=== PATIENT | female | born 1955 | race Caucasian/White ===

== ENCOUNTER → 2018-07-14 | Outpatient (CLI) | payer OTHER ==
[2018-07-14 13:31] LABS: Basophils # (A) 0.1 k/uL (0-0.2); Basophils % (A) 1 %; Eosinophils # (A) 0.2 k/uL (0-0.7); Eosinophils % (A) 3 %; HCT 46.8 % (34.0-46.0); Lymphocytes # (A) 1.7 k/uL (1.0-4.8); Lymphocytes % (A) 31 %; MCH 29.7 pg (25.0-35.0); MCHC 32.1 g/dL (31.0-37.0); MCV 92.3 fL (80.0-100.0); Mean Platelet Volume 5.9; Monocytes # (A) 0.3 k/uL (0-1.0); Monocytes % (A) 6 %; Neutrophils % (A) 56 %; Platelet Count 462 k/uL (150-450); RBC 5.07 m/uL (3.80-5.40); RDW 13.4 % (11.5-15.5); WBC 5.3 k/uL (3.8-10.6)
[2018-07-14 13:49] LABS: Anion Gap 7 mmol/L; Blood Urea Nitrogen 15 mg/dL (7-17); Carbon Dioxide 26 mmol/L (22-30); Chloride 108 mmol/L (98-107); Glucose 102 mg/dL (74-99); Sodium 141 mmol/L (137-145)
== END | disposition home or self-care (01) ==
LOC: LABPAT 12:13
PROVIDERS: ATTEND Obstetrics & Gynecology
DX: Z01.818 Encounter for other preprocedural examination (principal); Z01.812 Encounter for preprocedural laboratory examination; N81.6 Rectocele; N81.10 Cystocele, unspecified
CPT/HCPCS: 80051; 82565; 82947; 84520; 85025; 86850; 86900; 86901; 87086; 93005

== ENCOUNTER 2018-07-21 05:55 | Day surgery (SDC) | payer MEDICAID, OTHER ==
[2018-07-16 13:35] VITALS: BMI 29.7
[~2018-07-21 05:55] MED LIST: DEXAMETHASONE SOD PHOSPHATE 10 MG/ML 1 ML VIAL IV ONE; LIDOCAINE 1% 20 ML VIAL (10MG/ML) FOR IV START INTRADERMA PRN; ONDANSETRON 4 MG/2 ML VIAL IVP ONE; SCOPOLAMINE 1.5MG/72HR PATCH TRANSDERM ONE; fentaNYL (PF) 50 MCG/ML 2 ML AMP IV PRN
[2018-07-21] MEDS: LACTATED RINGERS 1,000 ML IV SCH (06:52)
[2018-07-21] MEDS ORDERED: MIDAZOLAM 2 MG/2 ML VIAL IV ONE (07:08)
[2018-07-21] MEDS ORDERED: MORPHINE SULFATE (PF) 0.3 MG/0.3 ML SYR ONE (07:27)
[2018-07-21] MEDS ORDERED: NEOSTIGMINE 1 MG/ML 10 ML VIAL ONE (07:27)
[2018-07-21] MEDS ORDERED: SUCCINYLCHOLINE CHLORIDE 100 MG/5 ML SYR IV ONE (07:27)
[2018-07-21] MEDS ORDERED: fentaNYL (PF) 50 MCG/ML 2 ML AMP ONE (07:27)
[2018-07-21] MEDS ORDERED: MIDAZOLAM 2 MG/2 ML VIAL ONE (07:27)
[2018-07-21] MEDS ORDERED: ROCURONIUM BROMIDE 10 MG/ML 10 ML VIAL IV ONE (07:27)
[2018-07-21] MEDS ORDERED: GLYCOPYRROLATE 0.2 MG/ML 2 ML VIAL ONE (07:27)
[2018-07-21] MEDS ORDERED: KETOROLAC 30 MG/ML 1 ML VIAL ONE (07:27)
[2018-07-21] MEDS ORDERED: LIDOCAINE 1% INJ 10MG/ML (20 ML MDV) ONE (07:27)
[2018-07-21] MEDS ORDERED: PROPOFOL 10 MG/ML 20 ML VIAL IV ONE (07:27)
[2018-07-21] MEDS: ceFAZolin IN SWFI 2 GM/20 ML SYRINGE IVP ONE ×2 (07:30→07:46)
[2018-07-21] MEDS ORDERED: VASOPRESSIN 20 UNIT/ML 1 ML VIAL IM ONE (07:45)
[2018-07-21] MEDS ORDERED: BACITRACIN 500 UNIT/GM OINT 28.4 GM TUBE TOPICAL ONE ×2 (07:48→08:22)
[2018-07-21] MEDS ORDERED: diphenhydrAMINE 50 MG/ML 1 ML VIAL IVP PRN (08:31)
[2018-07-21] MEDS ORDERED: ZOLPIDEM 5 MG TAB PO PRN (08:31)
[2018-07-21] MEDS ORDERED: SIMETHICONE 80 MG CHEWABLE PO PRN (08:31)
[2018-07-21] MEDS ORDERED: METOCLOPRAMIDE 5 MG/ML 2 ML VIAL IVP PRN (08:31)
[2018-07-21] MEDS ORDERED: ONDANSETRON 4 MG/2 ML VIAL IVP PRN (08:31)
--- NOTE | 2018-07-21 08:31 | P.OP ---
Date of Procedure: 07/21/18 Preoperative Diagnosis: Increasingly symptomatic rectocele and cystocele Postoperative Diagnosis: Same Procedure(s) Performed: Anterior and posterior colporrhaphies Anesthesia: ALPAA Surgeon: Nina Kohler Yard Operator #1: [place] Du Estimated Blood Loss (ml): 25 IV fluids (ml): 600 Urine output (ml): 200 Pathology: none sent Condition: stable Disposition: PACU Description of Procedure: Patient is brought to the operating room where a general anesthetic is administered without difficulty. She's placed in the dorsal lithotomy position. The appropriate timeout is performed to assure proper patient and procedural identification. Antibiotics are given. The vaginal vault and perineal bodies are both prepped and draped in usual sterile fashion. The bladder is drained for approximately 200 mL of clear yellow urine. Weighted speculum is placed and the uterosacral cardinal ligament dimples are identified and grasped with Allis clamps. An incision is made between the 2 clamps with a sharp scalpel. The mucosa and the anterior vaginal wall was injected with dilute Pitressin. Metzenbaum scissors are used in the midline to underlying the mucosa to the apex of the defect, approximately 1.5 cm inferior to the urethra. A sponge is used to sweep the underlying tissues from the overlying mucosa. When this is completed the Brown catheter is placed. 2-0 Vicryl sutures used in an interrupted fashion to bring the fascial edges together thereby completely reducing the cystocele. Metzenbaum scissors are used to trim the redundant mucosa. 2-0 Vicryl is used to bring the mucosal edges now back in the midline with a running locking stitch. The cystocele was completely obliterated. Attention is now drawn to the rectocele. A triangular portion of tissue is removed from the perineal body with a scalpel. The posterior mucosa is once again injected with the same dilute Pitressin solution. Metzenbaum scissors are used in the midline to undermine the tissue to the apex of the defect. The edges of the mucosa are held in a fanlike fashion with Allis clamps. Sponge rolled finger is used to sweep the underlying fascia away from the overlying mucosa. 2-0 Vicryl is used in an interrupted fashion to bring the new fascial edges together thereby completely obliterating the rectocele. Metzenbaum scissors are used to trim the redundant mucosa. 2-0 Vicryl is used to remove the new mucosa edges together in the midline in a running locking stitch for excellent reapproximation. An episiotomy like closure is used to finish the case. The vagina is packed with one-inch iodophor gauze to support the suture lines. Brown is still noted to be draining clear urine. Deep rectal exam is performed and no defects occurring or suture material is noted. All sponge needle and enhancement counts are correct at the end of the procedure. Patient is brought back to recovery room in very good condition with stable vital signs including blood pressure 100/70, pulse 77, 100% O2 saturation. Total estimated blood loss 25 mL's.
[2018-07-21] MEDS ORDERED: MORPHINE SULFATE 2 MG/ML SYRINGE IVP PRN (09:15)
[2018-07-21] MEDS ORDERED: NALBUPHINE 10 MG/ML (1 ML AMP) IV PRN (09:15)
[2018-07-21] MEDS ORDERED: NALOXONE 0.4 MG/ML 1 ML VIAL IV PRN (09:15)
[2018-07-21] MEDS: IBUPROFEN 600 MG TAB PO PRN (15:18)
[2018-07-21] MEDS ORDERED: FAMOTIDINE 20 MG TAB PO STA (18:51)
[2018-07-21 20:55] VITALS: TEMP 97.6
[2018-07-22] MEDS: LACTATED RINGERS 1,000 ML IV SCH (04:00)
[2018-07-22] MEDS: IBUPROFEN 600 MG TAB PO PRN (06:46)
[2018-07-22] MEDS ORDERED: diphenhydrAMINE 25 MG CAP PO PRN (08:02)
--- NOTE | 2018-07-22 08:08 | P.PN ---
Progress Note - Text 07/22 935 63-year-old female is status post cystocele repair by Dr. Chris yeboah. Patient seen this morning with a VAS of 0, had 1 episode of vomiting last night. Feeling better today.
--- NOTE | 2018-07-22 08:10 | P.DS ---
Providers Expected date of discharge: 07/22/18 Attending physician: Nina Kohler [facility] Course: This is a 63-year-old woman status post hysterectomy many years ago for benign disease. She presented with an increasingly symptomatic cystocele and rectocele , requesting surgical palliation. Please see my dictated history and physical for details. Patient underwent anterior and posterior colporrhaphy under my care yesterday. She did very well intraoperatively. The vagina was packed with iodoform gauze, Brown catheter placed. Please see my dictated operative note for details. This morning the Brown catheter and the vaginal packing have both been removed. She is passing flatus, and enjoying regular food for breakfast. She has yet to void. Extremities are negative. Chest is clear. Abdomen is soft and nontender. No vaginal bleeding, no CVA tenderness. Vital signs have remained stable. Plan is to measure voided and post void residual. If less than 100, patient will be discharged home later today. She is judged to be in very good condition for discharge home. I have reminded her no intercourse, tampons or douching. She will use [id number] Advil, Motrin or Aleve as needed for pain. I've asked her to call me with any foul smelling or bloody vaginal discharge, with any pain not alleviated by [id number] products, with any concerns or difficulties. Patient Condition at Discharge: Good Plan - Discharge Summary Discharge Rx Participant: No New Discharge Prescriptions: No Action Escitalopram [Lexapro] 10 mg PO HS Atorvastatin [Lipitor] 10 mg PO HS Cholecalciferol [Vitamin D3] 5,000 unit PO DAILY ALPRAZolam [Xanax] 0.5 mg PO Q8HR PRN PRN Reason: Anxiety Levothyroxine Sodium [Synthroid] 137 mcg PO DAILY Discharge Medication List ALPRAZolam [Xanax] 0.5 mg PO Q8HR PRN 07/16/18 [History] Atorvastatin [Lipitor] 10 mg PO HS 07/16/18 [History] Cholecalciferol [Vitamin D3] 5,000 unit PO DAILY 07/16/18 [History] Escitalopram [Lexapro] 10 mg PO HS 07/16/18 [History] Levothyroxine Sodium [Synthroid] 137 mcg PO DAILY 07/16/18 [History] Follow up Appointment(s)/Referral(s): Nina Kohler MD [STAFF PHYSICIAN] - 2 Weeks
[2018-07-22 11:46] VITALS: RESP 18
[2018-07-22 11:47] VITALS: BP 122/78; PULSE 67
== END 2018-07-22 11:40 | disposition home or self-care (01) ==
LOC: OR 05:55 → 4FBP 08:32 → OR 07-22 11:40
PROVIDERS: ATTEND Obstetrics & Gynecology
DX: N81.10 Cystocele, unspecified (principal); N81.6 Rectocele; E78.5 Hyperlipidemia, unspecified; E07.9 Disorder of thyroid, unspecified; K21.9 Gastro-esophageal reflux disease without esophagitis; Z88.5 Allergy status to narcotic agent; Z79.890 Hormone replacement therapy; Z79.899 Other long term (current) drug therapy; Z90.710 Acquired absence of both cervix and uterus
CPT/HCPCS: 57260; J2250; J1100; J2710; J2405; J2001; J2274; J3010; J1885; J0330; J2704; J0690; 86850; 86900; 86901

== ENCOUNTER 2019-07-08 07:04 | Day surgery (SDC) | payer MEDICAID, OTHER ==
[2019-07-06 15:27] VITALS: BMI 27.2
[~2019-07-08 07:04] MED LIST changes: -DEXAMETHASONE SOD PHOSPHATE 10 MG/ML 1 ML VIAL IV ONE; +LACTATED RINGERS 1,000 ML IV SCH; -LIDOCAINE 1% 20 ML VIAL (10MG/ML) FOR IV START INTRADERMA PRN; -ONDANSETRON 4 MG/2 ML VIAL IVP ONE; -SCOPOLAMINE 1.5MG/72HR PATCH TRANSDERM ONE; -fentaNYL (PF) 50 MCG/ML 2 ML AMP IV PRN
[2019-07-08 07:27] VITALS: TEMP 97.7
[2019-07-08] MEDS ORDERED: LIDOCAINE 1% 20 ML VIAL (10MG/ML) FOR IV START INTRADERMA ONE (07:42)
[2019-07-08] MEDS ORDERED: PROPOFOL 10 MG/ML 20 ML VIAL IV ONE (08:03)
--- NOTE | 2019-07-08 08:08 | P.GSHP ---
History of Present Illness H&P Date: 07/08/19 Chief Complaint: GI bleed This a 64 female with evidence of GI bleed on colon Guard test. Patient is today for colonoscopy. Past Medical History Past Medical History: Cancer, Hyperlipidemia, Osteoarthritis (OA), Thyroid Disorder Additional Past Medical History / Comment(s): TORTUOUS COLON., CHRONIC CONSTIPATION., PT HAS SPLENIC ARTERY ANEURYSM., occ palpitations, hx skin cancer History of Any Multi-Drug Resistant Organisms: None Reported Past Surgical History: Breast Surgery, Hysterectomy, Joint Replacement, Orthopedic Surgery Additional Past Surgical History / Comment(s): vero oophorectomy(one prior to and one with hysterectomy, CYSTS removed LEFT BREASTS, VERO BREAST REDUCTION., left ankle ORIF, left hip replacement Past Anesthesia/Blood Transfusion Reactions: Family History of Problems w/ Anesthesia Additional Past Anesthesia/Blood Transfusion Reaction / Comment(s): grandaughter had diff breathing, daughter had fever after gastric bypass about 6 yrs ago at [facility]-not sure if malignant hyperthermia-not heard that name Smoking Status: Never smoker - Past Family History Mother Family Medical History: Cancer Additional Family Medical History / Comment(s): CERVICAL CANCER WITH METS Father Family Medical History: Cancer Additional Family Medical History / Comment(s): MELANOMA Sister(s) Family Medical History: Cancer Additional Family Medical History / Comment(s): GALL BLADDER CANCER Medications and Allergies Home Medications Medication Instructions Recorded Confirmed Type ALPRAZolam [Xanax] 0.5 mg PO Q8HR PRN 07/16/18 07/08/19 History Atorvastatin [Lipitor] 10 mg PO HS 07/16/18 07/08/19 History Cholecalciferol [Vitamin D3] 5,000 unit PO DAILY 07/16/18 07/08/19 History Escitalopram [Lexapro] 20 mg PO HS 07/16/18 07/08/19 History Alive Vitamin 1 tab PO DAILY 07/06/19 07/08/19 History Levothyroxine Sodium [Synthroid] 150 mcg PO QAM 07/06/19 07/08/19 History Melatonin 10 mg PO HS 07/06/19 07/08/19 History Miralax(Dose Unknown) 1 applicate PO QAM 07/06/19 07/08/19 History Progesterone Tab(Dose Unknown) 1 tab PO HS 01/14/20 01/16/20 History Allergies Allergy/AdvReac Type Severity Reaction Status Date / Time hydrocodone [From Vicodin] AdvReac Severe Headache Verified 07/08/19 07:34 Surgical - Exam Vital Signs Temp Pulse Resp BP Pulse Ox 97.7 F 68 16 114/81 98 07/08/19 07:21 07/08/19 07:21 07/08/19 07:21 07/08/19 07:21 07/08/19 07:21 - General well developed, well nourished, no distress - Eyes PERRL - ENT normal pinna - Neck no masses - Respiratory normal expansion - Cardiovascular Rhythm: regular - Abdomen Abdomen: soft, non tender Assessment and Plan Assessment: History of GI bleed. We'll perform colonoscopy.
--- NOTE | 2019-07-08 08:21 | P.OP ---
Date of Procedure: 07/08/19 Preoperative Diagnosis: GI bleed Postoperative Diagnosis: Internal hemorrhoids Procedure(s) Performed: Colonoscopy Anesthesia: MAC Surgeon: Zach Michael Pathology: none sent Condition: stable Disposition: PACU Description of Procedure: The patient's placed on the endoscopy table in the lateral position. She received IV sedation. Digital rectal exam was performed which revealed internal hemorrhoids. The flexible colonoscope was then placed patient anus and passed throughout the entire colon. The ileocecal valve was visualized. The cecum, ascending and transverse colon appeared normal. The colon was quite tortuous. Scope was then brought back the descending and sigmoid colon and this appeared normal. Scope was withdrawn through the rectum and this was normal. Scope was withdrawn from the anus and there were internal hemorrhoids noted. There is no evidence of any GI bleed. Is presumed that her previous GI bleed was due to hemorrhoids. Patient top procedure well.
[2019-07-08 09:08] VITALS: BP 96/67; PULSE 61; RESP 18
== END 2019-07-08 09:02 | disposition home or self-care (01) ==
LOC: ORWHC2ENDO 07:04
PROVIDERS: ATTEND Surgery
DX: K64.8 Other hemorrhoids (principal); Q43.8 Other specified congenital malformations of intestine; M19.90 Unspecified osteoarthritis, unspecified site; E78.5 Hyperlipidemia, unspecified; E07.9 Disorder of thyroid, unspecified; K59.09 Other constipation; Z85.828 Personal history of other malignant neoplasm of skin; Z90.710 Acquired absence of both cervix and uterus; Z96.642 Presence of left artificial hip joint; Z90.722 Acquired absence of ovaries, bilateral; Z98.890 Other specified postprocedural states; Z80.49 Family history of malignant neoplasm of other genital organs; Z80.8 Family history of malignant neoplasm of other organs or systems; Z80.0 Family history of malignant neoplasm of digestive organs; Z79.890 Hormone replacement therapy; Z79.899 Other long term (current) drug therapy; Z79.3 Long term (current) use of hormonal contraceptives; Z88.5 Allergy status to narcotic agent
CPT/HCPCS: 45378; J2704

== ENCOUNTER → 2021-01-05 | Outpatient (CLI) | payer MEDICARE ==
--- NOTE | 2021-01-05 10:20 | XR ---
EXAMINATION TYPE: XR KUB DATE OF EXAM: 01/05/2021 9:57 AM CLINICAL HISTORY: Hepatomegaly. Left lower groin pain. History of gross hematuria. TECHNIQUE: Supine images of the abdomen and pelvis were obtained COMPARISON: 09/03/2012 IVP. 08/14/2011 CT abdomen pelvis. FINDINGS: Nonspecific bowel gas pattern. Unchanged chronic ovoid calcification over the right lower q uadrant, demonstrated to be benign-appearing mesenteric calcification on 2011 CT. There is no viscero megaly. Incompletely visualized left hip total arthroplasty. Degenerative changes of the lumbosacral spine. Degenerative change of the right hip. IMPRESSION: 1. Nonspecific bowel gas pattern. 2. No significant visceromegaly.
== END | disposition home or self-care (01) ==
LOC: RADXRMAIN 09:42
PROVIDERS: ATTEND Internal Medicine
DX: R16.0 Hepatomegaly, not elsewhere classified (principal)
CPT/HCPCS: 74018

== ENCOUNTER → 2021-03-12 | Outpatient (CLI) | payer OTHER ==
--- NOTE | 2021-03-12 17:44 | XR ---
Result: Clinical History: Pain. Comparison: None available. Technique: 3 views of the right shoulder. Findings: The bone mineralization is appropriate for age. No acute fracture or dislocation is seen. The acromioclavicular and glenohumeral joints are preserve d . The humeral head is well-seated in the glenoid. The visualized lung is clear. Impression: No acute osseous abnormality.
== END | disposition home or self-care (01) ==
LOC: LABWHC1 17:11
PROVIDERS: ATTEND Emergency Medicine
DX: S46.911A Strain of unspecified muscle, fascia and tendon at shoulder and upper arm level, right arm, initial encounter (principal)

== ENCOUNTER → 2021-03-22 | Outpatient (CLI) | payer MEDICARE ==
--- NOTE | 2021-03-22 12:00 | P.STRESS ---
- Stress Test Note Stress Test Results/Findings: Exam Performed: stress test Exam Date: 03/22/21 Reason for Exam: Abnormal EKG Height: 5 ft 7 in Weight: 80.739 kg Protocol: Brandon Stage: 3 Duration of Exercise: 7:00 Resting Heart Rate: 67 Resting Blood Pressure: 115/90 Maximum Achieved Heart Rate: 153 Maximum Achieved Blood Pressure: 186/85 85% PMHR: 132 100% PMHR: 155 METS: 8.9 Technologist Comment: Stress Test Results/Findings: Patient underwent exercise stress EKG with a Brandon protocol treadmill stress test. Patient exercised into Stage 3 for a total of 7 minutes reaching a total of 8.9 METS. Patient's maximum heart rate was 153 which represented 99% age- predicted maximum heart rate. Patient did experience burning in neck with exertion which may be consistent with angina, clinical correlation recommended. Stress EKG findings: At baseline patient's EKG showed normal sinus rhythm, normal axis, no significant ST or T wave abnormalities. At peak exercise, EKG showed equivocal 0.5mm upslopping ST depressions in the lateral and inferior leads. Conclusions: 1. Equivocal EKG response to exercise with nondiagnostic 0.5mm upslopping ST depressions noted. May consider stress test with imaging study if clinically indicated. 2. Neck burning sensation with exercise which may be consistent with angina. Clinical correlation recommended. 3. Fair exercise capacity.
== END | disposition home or self-care (01) ==
LOC: RADNMMAIN 08:29
PROVIDERS: ATTEND Internal Medicine
DX: R94.31 Abnormal electrocardiogram [ECG] [EKG] (principal)
CPT/HCPCS: 93017

== ENCOUNTER → 2021-04-11 | Outpatient (CLI) | payer MEDICARE ==
--- NOTE | 2021-04-11 10:04 | BD ---
EXAMINATION TYPE: Axial Bone Density DATE OF EXAM: 04/11/2021 COMPARISON: 09.15.2013 CLINICAL HISTORY: 65 YR OLD FEMALE.....ICD-10 CODE: Z13.820 OSTEOPOROSIS Height: 65 Weight: 177 FRAX RISK QUESTIONS: History of Fracture in Adulthood: YES Secondary Osteoporosis: YES 3. Menopause before 45: YES RISK FACTORS HISTORY OF: HX OF ANKLE FX WITH SURGICAL REPAIR AN ADULT Surgery to ...LT THR AT AGE 61, JUST WEAR Postmenopausal woman: YES, AT AGE 39 YRS OLD Hyperparathyroidism: NO Adrenal Insufficiency: NO MEDICATIONS: Thyroid Medications: YES, SYNTHROID, FOR ABOUT 20+ YRS Additional Medications: VIT D, ZOLOFT, XANAX, REFLUX MEDS, STATIN FOR CHOLESTEROL, Additional History: ANXIETY, REFLUX CHOLESTEROL EXAM MEASUREMENTS: Bone mineral densitometry was performed using the icix System. Bone mineral density as measured about the Lumbar spine is: ----- L1-L4(G/cm2): 1.156 T Score Values are as follows: ----- L1: -0.3 ----- L2: -0.8 ----- L3: 0.3 ----- L4: -0.5 ----- L1-L4: -0.3 Bone mineral density has: Increased 12.2% SINCE STUDY OF 09.15.2013 Bone mineral density about the R hip (g/cm2): 0.906 T Score values are as follows: -----R Neck: -0.5 -----R Total: -0.8 Bone mineral density has: Increased 4.7% SINCE STUDY OF 09.15.2013 FRAX%s: THERE IS A 12.0% CHANCE FOR A MAJOR OSTEOPOROTIC FX AND A 0.6% FOR HIP......PROBABILITY FO R FX IN 10 YRS TIME IMPRESSION: No evidence for osteoporosis or osteopenia. NOTE: T-SCORE=SD OF THE YOUNG ADULT MEAN.
--- NOTE | 2021-04-12 09:41 | MM ---
Reason for exam: screening (asymptomatic). Last mammogram was performed 6 years and 5 months ago. History: Patient is postmenopausal and history of other cancer. Family history of premenopausal breast cancer in mother at age 50. Reduction of the left breast, 1989. Reduction of the right breast, 1989. Benign excisional biopsy of the left breast. Physical Findings: A clinical breast exam by your physician is recommended on an annual basis and results should be correlated with mammographic findings. MG Screening Mammo w CAD Bilateral CC and MLO view(s) were taken. XCCL view(s) were taken of the left breast. Prior study comparison: November 10, 2014, bilateral MG diagnostic mammo w CAD VERO. September 15, 2013, CAD bilateral diagnostic mammogram. There are scattered fibroglandular densities. There is no discrete abnormality. ASSESSMENT: Negative, BI-RAD 1 RECOMMENDATION: Routine screening mammogram of both breasts in 1 year.
== END | disposition home or self-care (01) ==
LOC: RADBDWWP 07:17
PROVIDERS: ATTEND Internal Medicine
DX: Z12.31 Encounter for screening mammogram for malignant neoplasm of breast (principal); Z13.820 Encounter for screening for osteoporosis; Z78.0 Asymptomatic menopausal state
CPT/HCPCS: 77067; 77080

== ENCOUNTER → 2022-04-12 | Outpatient (CLI) | payer MEDICARE ==
--- NOTE | 2022-04-15 09:08 | MM ---
Reason for Exam: Screening (asymptomatic). Last screening mammogram was performed 12 month(s) ago. Indicated Problems: Pain of both sides (Focal) for 2 Day(s) : doug breast pain behind nipples with touch. does not know. Patient History: Menarche at age 12. First Full-Term at age 16. Left ovary removed at age 39. Right ovary removed at age 39. Hysterectomy at age 22. Postmenopausal. Estrogen for 6 months. 1989, Reduction on the Right side. 1989, Reduction on the Left side. Benign Excisional Biopsy on the left side. Mother had breast cancer, age 50. Risk Values: Johanny 5 year model risk: 3.7%. NCI Lifetime model risk: 12.8%. Prior Study Comparison: 08/19/2012 Bilateral Diagnostic Mammogram, [facility]. 09/15/2013 Bilateral Diagnostic Mammogram, [facility]. 11/10/2014 Bilateral Diagnostic Mammogram, [facility]. 04/11/2021 Bilateral Screening Mammogram, [facility]. Tissue Density: There are scattered fibroglandular densities. Findings: Analyzed By CAD. There is no suspicious group of microcalcifications or new suspicious mass in either breast. Overall Assessment: Negative, BI-RAD 1 Management: Screening Mammogram of both breasts in 1 year. A clinical breast exam by your physician is recommended on an annual basis and results should be correlated with mammographic findings. [facility] will attempt to contact patient to return for supplemental views and ultrasound if indicated. Electronically signed and approved by: Santy Hansen DO
== END | disposition home or self-care (01) ==
LOC: RADMAMWWP 09:06
PROVIDERS: ATTEND Internal Medicine
DX: Z12.31 Encounter for screening mammogram for malignant neoplasm of breast (principal)
CPT/HCPCS: 77063; 77067

== ENCOUNTER → 2023-05-20 | Outpatient (CLI) | payer MEDICARE ==
--- NOTE | 2023-05-21 09:42 | MM ---
Reason for Exam: Screening (asymptomatic). Last mammogram was performed 1 year(s) and 1 month(s) ago. Patient History: Menarche at age 12. First Full-Term at age 16. Left ovary removed at age 39. Right ovary removed at age 39. Hysterectomy at age 22. Postmenopausal. Estrogen for 6 months. 1989, Reduction on the Right side. 1989, Reduction on the Left side. Benign Excisional Biopsy on the left side. Mother had breast cancer, age 50. Risk Values: Johanny 5 year model risk: 3.7%. NCI Lifetime model risk: 11.8%. Prior Study Comparison: 11/10/2014 Bilateral Diagnostic Mammogram, [facility]. 04/11/2021 Bilateral Screening Mammogram, [facility]. 04/12/2022 Bilateral MG 3D screening mammo w/cad, [facility]. Tissue Density: The breast tissue is almost entirely fat. Findings: Analyzed By CAD. There is no suspicious group of microcalcifications or new suspicious mass. Overall Assessment: Negative, BI-RAD 1 Management: Screening Mammogram of both breasts in [address] [facility] will attempt to contact patient to return for supplemental views and ultrasound if indicated. Patient should continue monthly self-breast exams. A clinical breast exam by your physician is recommended on an annual basis. This exam should not preclude additional follow-up of suspicious palpable abnormalities. Note on Johanny scores and lifetime risk: 1. A Johanny score greater than 3% is considered moderate risk. If this is the case, consider specialist referral to assess eligibility for a risk reducing agent. 2. If overall lifetime risk for the development of breast cancer is 20% or higher, the patient may qualify for future screening with alternating mammogram and breast MRI. Electronically signed and approved by: Santy Hansen DO
== END | disposition home or self-care (01) ==
LOC: RADMAMWWP 12:50
PROVIDERS: ATTEND Internal Medicine
DX: Z00.00 Encounter for general adult medical examination without abnormal findings (principal); Z12.31 Encounter for screening mammogram for malignant neoplasm of breast; Z78.0 Asymptomatic menopausal state; Z80.3 Family history of malignant neoplasm of breast
CPT/HCPCS: 77063; 77067

== ENCOUNTER 2023-06-28 22:58 | Emergency (ER) | payer MEDICARE ==
[2023-06-29] MEDS ORDERED: diazePAM 2 MG TAB PO STA (00:08)
[2023-06-29] MEDS ORDERED: KETOROLAC 15 MG/ML 1 ML VIAL IM STA (00:08)
[2023-06-29] MEDS ORDERED: traMADol 50 MG TAB PO STA (00:08)
--- NOTE | 2023-06-29 00:09 | ED ---
Chest Pain HPI - General Chief Complaint: Chest Pain Stated Complaint: Chest pain Time Seen by Provider: 06/28/23 23:50 Source: patient, RN notes reviewed, old records reviewed Mode of arrival: ambulatory Limitations: no limitations - History of Present Illness Initial Comments: This is a 68-year-old female to the ER today for evaluation today. Patient presented to the ER for evaluation regards to patient is a for evaluation chest pain that radiates to his back left-sided chest pain chest pain that radiates to his back with occasional shortness of breath, patient without fever or trauma. No significant cough currently. Patient believes his pain is mechanical in nature worse when he moves his shoulder MD Complaint: chest pain -: days(s) Onset: during rest, during exertion Pain Location: substernal, left chest, right chest Pain Radiation: back Severity: moderate Severity scale (1-10): 5 Consistency: constant Improves With: nitroglycerin Worsens With: nothing Context: recent illness Anginal Symptoms: nausea Other Symptoms: cough Treatments Prior to Arrival: none - Related Data Home Medications Medication Instructions Recorded Confirmed ALPRAZolam [Xanax] 0.5 mg PO Q8HR PRN 07/16/18 07/08/19 Atorvastatin [Lipitor] 10 mg PO HS 07/16/18 07/08/19 Cholecalciferol [Vitamin D3] 5,000 unit PO DAILY 07/16/18 07/08/19 Escitalopram [Lexapro] 20 mg PO HS 07/16/18 07/08/19 Alive Vitamin 1 tab PO DAILY 07/06/19 07/08/19 Levothyroxine Sodium [Synthroid] 150 mcg PO QAM 07/06/19 07/08/19 Melatonin [Melatonin ER] 10 mg PO HS 07/06/19 07/08/19 Miralax(Dose Unknown) 1 applicate PO QAM 07/06/19 07/08/19 Progesterone Tab(Dose Unknown) 1 tab PO HS 07/06/19 07/08/19 Allergies Allergy/AdvReac Type Severity Reaction Status Date / Time hydrocodone [From Vicodin] AdvReac Severe Headache Verified 06/28/23 23:00 Review of Systems ROS Statement: Those systems with pertinent positive or pertinent negative responses have been documented in the HPI. ROS Other: All systems not noted in ROS Statement are negative. EKG Findings - EKG Comments: EKG Findings:: EKG is sinus 77 OK 188 QRS 72 QTC 43 - EKG Results: EKG: interpreted by GILA Past Medical History Past Medical History: Cancer, Hyperlipidemia, Osteoarthritis (OA), Thyroid Disorder Additional Past Medical History / Comment(s): TORTUOUS COLON., CHRONIC CONSTIPATION., PT HAS SPLENIC ARTERY ANEURYSM., occ palpitations, hx skin cancer History of Any Multi-Drug Resistant Organisms: None Reported Past Surgical History: Breast Surgery, Hysterectomy, Joint Replacement, Orthopedic Surgery Additional Past Surgical History / Comment(s): vero oophorectomy(one prior to and one with hysterectomy, CYSTS removed LEFT BREASTS, VERO BREAST REDUCTION., left ankle ORIF, left hip replacement Past Anesthesia/Blood Transfusion Reactions: Family History of Problems w/ Anesthesia Additional Past Anesthesia/Blood Transfusion Reaction / Comment(s): grandaughter had diff breathing, daughter had fever after gastric bypass about 6 yrs ago at [facility]-not sure if malignant hyperthermia-not heard that name Past Psychological History: Anxiety, Depression Smoking Status: Never smoker Past Alcohol Use History: None Reported Past Drug Use History: None Reported - Past Family History Mother Family Medical History: Cancer Additional Family Medical History / Comment(s): CERVICAL CANCER WITH METS Father Family Medical History: Cancer Additional Family Medical History / Comment(s): MELANOMA Sister(s) Family Medical History: Cancer Additional Family Medical History / Comment(s): GALL BLADDER CANCER General Exam Limitations: no limitations General appearance: alert, in no apparent distress Head exam: Present: atraumatic, normocephalic, normal inspection Eye exam: Present: normal appearance, PERRL, EOMI. Absent: scleral icterus, conjunctival injection, periorbital swelling ENT exam: Present: normal exam, mucous membranes moist Neck exam: Present: normal inspection. Absent: tenderness, meningismus, lymphadenopathy Respiratory exam: Present: normal lung sounds bilaterally. Absent: respiratory distress, wheezes, rales, rhonchi, stridor Cardiovascular Exam: Present: regular rate, normal rhythm, normal heart sounds. Absent: systolic murmur, diastolic murmur, rubs, gallop, clicks GI/Abdominal exam: Present: soft, normal bowel sounds. Absent: distended, tenderness, guarding, rebound, rigid Extremities exam: Present: normal inspection, full ROM, normal capillary refill. Absent: tenderness, pedal edema, joint swelling, calf tenderness Back exam: Present: normal inspection Neurological exam: Present: alert, oriented X3, CN II-XII intact Psychiatric exam: Present: normal affect, normal mood Skin exam: Present: warm, dry, intact, normal color. Absent: rash Course Vital Signs 06/28/23 06/29/23 23:00 02:41 Temperature 97.5 F L 97.9 F Pulse Rate 80 76 Respiratory 18 16 Rate Blood Pressure 144/70 139/91 O2 Sat by Pulse 98 95 Oximetry - Reevaluation(s) Reevaluation #1: Medical records reviewed Reevaluation #2: Patient symptoms are improved Reevaluation #3: Patient informed results and questions answered Studies x-rays chest shoulder negative for acute disease Reevaluation #4: Was pt. sent in by a medical professional or institution (PATSY Mobley, SCREEN AND CYCLONE REPAIRER, urgent care, hospital, or usp...) When possible be specific @ -no Did you speak to anyone other than the patient for history (EMS, parent, family, police, friend...)? What history was obtained from this source @ -no Did you review nursing and triage notes (agree or disagree)? Why? @ -agree Are old charts reviewed (outside hosp., previous admission, EMS record, old EKG, old radiological studies, urgent care reports/EKG's, usp records)? Report findings @ -yes Differential Diagnosis (chest pain, altered mental status, abdominal pain women, abdominal pain men, vaginal bleeding, weakness, fever, dyspnea, syncope, headache, dizziness, GI bleed, back pain, seizure, CVA, palpatations, mental health, musculoskeletal)? @ -prior EKG interpreted by me (3pts min.). @ -yes X-rays interpreted by me (1pt min.). @ -yes negative for acute disease CT interpreted by me (1pt min.). @ -no U/S interpreted by me (1pt. min.). @ -no What testing was considered but not performed or refused? (CT, X-rays, U/S, labs)? Why? @ -none What meds were considered but not given or refused? Why? @ -none Did you discuss the management of the patient with other professionals (professionals i.e. PATSY Mobley, SCREEN AND CYCLONE REPAIRER, lab, RT, psych nurse, social welfare research worker, reacher, teacher, commercial loan officer, case resource manager)? Give summary @ -no Was smoking cessation discussed for >3mins.? @ -no Were there social determinants of health that impacted care today? How? (Homelessness, low income, unemployed, alcoholism, drug addiction, transportation, low edu. Level, literacy, decrease access to med. care, snf, rehab)? @ -none Was there de-escalation of care discussed even if they declined (Discuss DNR or withdrawal of care, Hospice)? DNR status @ -no What co-morbidities impacted this encounter? (DM, HTN, Smoking, COPD, CAD, Cancer, CVA, ARF, Chemo, Hep., AIDS, mental health diagnosis, sleep apnea, morbid obesity)? @ -none Was patient admitted / discharged? Hospital course, mention meds given and route, prescriptions, significant lab abnormalities, going to OR and other pertinent info. @ - 68 female to the ER today for evaluation of pain shoulder pain back pain which is resolved here in the ER, patient does not want further evaluation or investigation and chest pain. Patient's pain is well-controlled she'll be discharged home Discharge Was critical care preformed (if so, how long)? @ -no Undiagnosed new problem with uncertain prognosis? @ -no Drug Therapy requiring intensive monitoring for toxicity (Heparin, Nitro, Insulin, Cardizem)? @ -no Were any procedures done? @ -no Diagnosis/symptom? @ -Shoulder pain Acute, or Chronic, or Acute on Chronic? @ -Acute Uncomplicated (without systemic symptoms) or Complicated (systemic symptoms)? @ -Complicated Side effects of treatment? @ -no Exacerbation, Progression, or Severe Exacerbation? @ -exacerbation Poses a threat to life or bodily function? How? (Chest pain, USA, PR, pneumonia, PE, COPD, DKA, ARF, appy, cholecystitis, CVA, Diverticulitis, Homicidal, Suicidal, threat to staff... and all critical care pts) @ -yes Reevaluation #5: Differential Chest Pain: Stable Angina, Unstable Angina, STEMI, NSTEMI Aortic Dissection, Pneumothorax, Musculoskeletal, Esophageal Spasm GERD, Cholecystitis, Pancreatitis, Zoster, this is not meant to be an all-inclusive list. Chest Pain MDM - MDM 68 female to the ER today for evaluation of pain shoulder pain back pain which is resolved here in the ER, patient does not want further evaluation or investigation and chest pain. Patient's pain is well-controlled she'll be discharged home Disposition Clinical Impression: Chest pain, Right shoulder pain, Rib pain on right side Disposition: HOME SELF-CARE Condition: Good Instructions (If sedation given, give patient instructions): Chest Pain (ED) Is patient prescribed a controlled substance at d/c from ED?: No Referrals: Angela Reynolds MD [Primary Care Provider] - 1-2 days Time of Disposition: 02:30
--- NOTE | 2023-06-29 01:35 | XR ---
EXAM: XR Chest, 2 Views CLINICAL HISTORY: ITS.REASON XR Reason: pain TECHNIQUE: Frontal and lateral views of the chest. COMPARISON: No relevant prior studies available. FINDINGS: Lungs: Unremarkable. No consolidation. Pleural space: Unremarkable. No pneumothorax. Heart: Unremarkable. No cardiomegaly. Mediastinum: Unremarkable. Normal mediastinal contour. Bones/joints: Unremarkable. No acute fracture. IMPRESSION: Normal chest x-rays.
--- NOTE | 2023-06-29 01:57 | XR ---
EXAM: XR Right Shoulder Complete, 2 or More Views CLINICAL HISTORY: ITS.REASON XR Reason: pain TECHNIQUE: Two or more views of the right shoulder. COMPARISON: No relevant prior studies available. FINDINGS: Bones/joints: Osseous demineralization. No fracture or dislocation. Soft tissues: Unremarkable. IMPRESSION: No acute findings in the right shoulder.
--- NOTE | 2023-06-29 01:57 | XR ---
EXAM: XR Right Ribs, 2 Views CLINICAL HISTORY: ITS.REASON XR Reason: pain TECHNIQUE: Frontal and oblique views of the right ribs. COMPARISON: No relevant prior studies available. FINDINGS: Lungs: Unremarkable as visualized. No consolidation. Pleural space: Unremarkable. No pneumothorax. Bones/joints: Osseous demineralization. No acute fracture. IMPRESSION: No acute findings in the right ribs.
[2023-06-29] MEDS ORDERED: IBUPROFEN 600 MG STARTER PACK 4 TAB BTL PO STA (02:33)
[2023-06-29] MEDS ORDERED: ACET/COD 300 MG/30 MG STARTER PACK 6 TAB BTL PO STA (02:33)
[2023-06-29 03:05] VITALS: BP 139/91; PULSE 76; RESP 16; TEMP 97.9
== END 2023-06-29 02:43 | disposition home or self-care (01) ==
LOC: EC 22:58
DX: M25.511 Pain in right shoulder (principal); R07.81 Pleurodynia; E78.5 Hyperlipidemia, unspecified; E07.9 Disorder of thyroid, unspecified; F41.9 Anxiety disorder, unspecified; F32.A Depression, unspecified; Z79.899 Other long term (current) drug therapy; Z79.890 Hormone replacement therapy; Z88.5 Allergy status to narcotic agent
CPT/HCPCS: 93005; 71100; 73030; 71046; 99285; 96372; J1885

== ENCOUNTER → 2023-12-03 | Outpatient (CLI) | payer MEDICARE ==
[2023-12-04 02:54] LABS: HCT 43.1 % (37.2-46.3); HGB 13.4 g/dL (12.0-15.0); MCHC 31.1 g/dL (32.0-37.0); MCV 96.4 FL (80.0-97.0); NRBC Per 100 WBC 0 X 10*3/uL (0.00-0.01); Platelet Count 413 X 10*3/uL (140-440); RBC 4.47 X 10*6/uL (4.10-5.20); RDW 13.3 % (11.5-14.5); WBC 6.63 X 10*3/uL (4.50-10.00)
[2023-12-04 03:29] LABS: Blood Urea Nitrogen 12.7 mg/dL (9.0-27.0); Carbon Dioxide 23.1 mmol/L (21.6-31.8); Chloride 106 mmol/L (96-109); Potassium 4.6 mmol/L (3.5-5.5); Sodium 140 mmol/L (135-145)
== END | disposition home or self-care (01) ==
LOC: LABPAT 14:50
PROVIDERS: ATTEND Internal Medicine
DX: Z01.812 Encounter for preprocedural laboratory examination (principal); R00.2 Palpitations; R07.9 Chest pain, unspecified
CPT/HCPCS: 80051; 82565; 84520; 85027

== ENCOUNTER → 2023-12-04 | Day surgery (SDC) | payer MEDICARE ==
[2023-12-03 09:01] VITALS: BMI 28.8
[~2023-12-04] MED LIST changes: +ALPRAZolam 0.25 MG TAB PO PRN; +ASPIRIN 325 MG TAB PO STA; +HEPARIN SODIUM,PORCINE (1 ML) 2,500 UNIT in SODIUM CHLORIDE 0.9% 250 ML IRRIGATION PRN; +HEPARIN SODIUM,PORCINE 10,000 UNIT in SODIUM CHLORIDE 0.9% 1,000 ML IRRIGATION PRN; -LACTATED RINGERS 1,000 ML IV SCH; +LIDOCAINE 1% INJ 10MG/ML (20 ML MDV) ONE; +NITROGLYCERIN SL TABS 0.4 MG TAB SUBLINGUAL PRN; +VERAPAMIL 2.5 MG/ML 2 ML AMP ONE
[2023-12-04] MEDS: ASPIRIN 81 MG ONE (12:08)
[2023-12-04] MEDS: ALPRAZolam 0.5 MG TAB PO PRN (12:08)
[2023-12-04] MEDS: SODIUM CHLORIDE 0.9% 1,000 ML in EMPTY BAG 1 BAG IV SCH (12:10)
[2023-12-04 12:23] VITALS: TEMP 97.9
[2023-12-04] MEDS: MIDAZOLAM 2 MG/2 ML VIAL IVP ONE ×4 (13:45→14:02)
[2023-12-04] MEDS: fentaNYL (PF) 50 MCG/ML 2 ML AMP IVP ONE ×3 (13:46→14:02)
[2023-12-04] MEDS: LIDOCAINE 1% INJ 10MG/ML (20 ML MDV) SQ ONE ×2 (13:56)
[2023-12-04] MEDS: fentaNYL (PF) 50 MCG/ML 2 ML AMP ONE (13:58)
[2023-12-04] MEDS: VERAPAMIL SYRINGE (5 MG/10 ML) INTRAARTER ONE ×3 (14:00→14:07)
[2023-12-04] MEDS: NITROGLYCERIN 1000MCG/10ML SYRINGE INTRACORON ONE (14:06)
[2023-12-04] MEDS: HEPARIN SODIUM 1,000 UN/ML (10ML VL) ONE (14:15)
[2023-12-04] MEDS: IOPAMIDOL-370 100ML BTL INJ ONE (14:23)
[2023-12-04] MEDS: SODIUM CHLORIDE 0.9% 500 ML 500 ML IV ONE (14:24)
--- NOTE | 2023-12-04 14:41 | P.CARDCATH ---
Description of Procedure: PROCEDURES PERFORMED: Left heart catheterization, bilateral coronary angiography, ultrasound guided arterial access, iFR of RCA INDICATION: CAD with intermediate disease on CT coronary, atypical chest pain CONSENT:I have discussed the risks, benefits and alternative therapies for the above-mentioned procedure and for both sedation/analgesia as well as necessary blood product administration, if indicated, as they pertain to this patient. The patient has indicated understanding and acceptance of the risks and procedures discussed. PROCEDURE: After the risks, benefits and alternatives of the above mentioned procedure explained in detail with the patient, informed consent was obtained. Patient was taken to the catheterization lab and prepped and draped in usual fashion. Ultrasound guidance was used to assess for arterial access. 1% lidocaine was used to anesthetize the right radial artery. A 6-Angolan sheath was placed in the right radial artery using modified Seldinger technique and ultrasound guidance. Left coronary angiography was performed with a 5-Angolan JL 3.5 catheter and right coronary angiography was performed with a 5-Angolan FR5 catheter in various views. A 5-Angolan FR5 catheter was inserted into the left ventricle and pressure measurements were obtained. The decision was made to perform iFR of the RCA. Using the diagnostic FR 5 catheter A0.014 pressure wire was advanced in the proximal RCA normalized.the wire was then passed 1 cm distal to the lesion and iFR was performed and was normal at 0.91. There was small amount of drift and therefore this was repeated and was normal at 1.02. The right radial sheath was removed and a TR band was placed with hemostasis achieved. The patient tolerated the procedure well. Patient was transported back to the post catheterization holding area in stable condition. Conscious Sedation: Patient was monitored under the direct supervision of myself for conscious sedation using Versed and fentanyl for a total duration of 29 minutes HEMODYNAMICS: Ao: 98/65 LV: 102/4, LVEDP 7 SELECTIVE CORONARY ARTERIOGRAPHY: LEFT MAIN: The left main is a large caliber vessel which bifurcates into the LAD and circumflex. There is no significant stenosis. LEFT ANTERIOR DESCENDING CORONARY ARTERY: LAD is a large caliber vessel which wraps around to the apex. There is proximal LAD 30-40% stenosis and distal 30- 40% stenosis. LEFT CIRCUMFLEX CORONARY ARTERY: Left circumflex is a moderate caliber vessel without significant stenosis. RIGHT CORONARY ARTERY: The right coronary artery is a large caliber vessel which gives off a PDA and PLV branch and is the dominant vessel. There is a focal mid RCA 50% stenosis. FINAL IMPRESSION: 1. CAD as described above with 50% RCA, 30-40% proximal LAD stenosis 2. Normal left sided filling pressures 3. iFR RCA normal PLAN: 1. Aggressive risk factor modification per most recent ACC/AHA guidelines. 2. Follow-up in the office in 1-2 weeks.
[2023-12-04 15:41] VITALS: RESP 16
[2023-12-04 17:00] VITALS: BP 100/56; PULSE 75
== END ==
LOC: CATHCVL 11:41
PROVIDERS: ATTEND Internal Medicine
DX: R07.9 Chest pain, unspecified (principal); I25.10 Atherosclerotic heart disease of native coronary artery without angina pectoris
CPT/HCPCS: 93571; 93458; 93799; C1769 ×3; C1894; J2250; J2001; J3010; J1644 ×2; Q9967; J2305; 76937

== ENCOUNTER → 2024-05-21 | Outpatient (CLI) | payer MEDICARE ==
--- NOTE | 2024-05-24 09:08 | MM ---
Reason for Exam: Screening (asymptomatic). Last screening mammogram was performed 12 month(s) ago. Patient History: Menarche at age 12. First Full-Term at age 16. Left ovary removed at age 39. Right ovary removed at age 39. Hysterectomy at age 22. Postmenopausal. Estrogen for 6 months. 1989, Reduction on the Right side. 1989, Reduction on the Left side. Benign Excisional Biopsy on the left side. Mother had breast cancer, age 50. Risk Values: Johanny 5 year model risk: 3.8%. NCI Lifetime model risk: 11.3%. Prior Study Comparison: 04/11/2021 Bilateral Screening Mammogram, [facility]. 04/12/2022 Bilateral MG 3D screening mammo w/cad, [facility]. 05/20/2023 Bilateral MG 3D screening mammo w/cad, [facility]. Tissue Density: There are scattered areas of fibroglandular density. Findings: Analyzed By CAD. Right breast: There is no suspicious group of microcalcifications or new suspicious mass. Left breast: There is no suspicious group of microcalcifications or new suspicious mass. Overall Assessment: Negative, BI-RAD 1 Management: Screening Mammogram of both breasts in [address] [facility] will attempt to contact patient to return for supplemental views and ultrasound if indicated. Patient should continue monthly self-breast exams. A clinical breast exam by your physician is recommended on an annual basis. This exam should not preclude additional follow-up of suspicious palpable abnormalities. Note on Johanny scores and lifetime risk: 1. A Johanny score greater than 3% is considered moderate risk. If this is the case, consider specialist referral to assess eligibility for a risk reducing agent. 2. If overall lifetime risk for the development of breast cancer is 20% or higher, the patient may qualify for future screening with alternating mammogram and breast MRI. [facility], , 05/24/2024 9:05 AM. Electronically signed and approved by: Santy Hansen DO
== END | disposition home or self-care (01) ==
LOC: RADMAMWWP 12:47
PROVIDERS: ATTEND Internal Medicine
DX: Z12.31 Encounter for screening mammogram for malignant neoplasm of breast (principal); Z78.0 Asymptomatic menopausal state; Z80.3 Family history of malignant neoplasm of breast
CPT/HCPCS: 77067

== ENCOUNTER → 2024-06-10 | Outpatient (CLI) | payer MEDICARE ==
[2024-06-10 14:59] LABS: ALT 19 U/L (8-44); AST 21 U/L (13-35); LDL Cholesterol,Calculated 59.8 mg/dL (0.0-131.0); VLDL Calculation 13.04 mg/dL (5.00-40.00)
== END | disposition home or self-care (01) ==
LOC: LABWHC1 11:49
PROVIDERS: ATTEND Internal Medicine
DX: E78.2 Mixed hyperlipidemia (principal)
CPT/HCPCS: 36415; 80061; 83036; 84450; 84460